=== PATIENT | female | born 1950 | race Caucasian/White ===

== ENCOUNTER → 2016-10-19 | Outpatient (CLI) | payer MEDICARE, BC ==
[~2016-10-19] MED LIST: ASPI-611 PO; ATEN1TAB30 PO; CALC-1124 PO; CALC750T4 PO; CHOL100018 PO; FAMO-137 PO; LACT1CAP80 PO; LEVO75TA10 PO; LUBI24CA7 PO; ONDA4TAB7 PO; PANT40TA27 PO; POTA10TA16 PO; PREN1TAB77 PO; SENN1TAB79 PO; SIMV20TA89 PO; TRAM50TA4 PO; VITA1CAP64 PO
== END ==
LOC: NWCC 15:23
PROVIDERS: ATTEND Surgery
DX: T81.31XA Disruption of external operation (surgical) wound, not elsewhere classified, initial encounter (principal); Y83.8 Other surgical procedures as the cause of abnormal reaction of the patient, or of later complication, without mention of misadventure at the time of the procedure
CPT/HCPCS: 97605; A6237

== ENCOUNTER → 2016-10-22 | Outpatient (CLI) | payer MEDICARE, BC ==
--- NOTE | 2016-10-22 21:50 | WOUNDPNF ---
DATE 10/22/2016 HISTORY This patient developed an open wound at a midline vertically oriented abdominal incision when the skin and subcutaneous tissue at this incision were opened for drainage of a subcutaneous fluid collection on 09/04/2016. The patient did have a wound VAC placed to this open wound at the abdominal incision. The patient did undergo secondary closure of this open wound at the abdomen on 10/13/[address] Lou at [facility]. Skin and subcutaneous tissue margins were closed at most of the incision. There were five areas along the incision where dorina of white foam were placed down through the incision down to the base of the open wound. A wound VAC was then applied over the incision at the time of the operation performed on 10/13/2016. The patient has been back to [facility] [place] for wound VAC dressing changes since the operation performed on 10/13/2016. The negative pressure for the wound VAC was initially set at 125 mmHg at the time of the operation performed on 10/13/2016. The negative pressure was increased to 150 mmHg at the time of the last wound VAC dressing change at [facility] on 10/19/2016. The patient comes in for another wound VAC dressing change today. PHYSICAL EXAM Vital signs: Temperature is 97.4 degrees Fahrenheit. Blood pressure is 138/75. Pulse is 43. Weight is 138 pounds. ABDOMEN: The patient has a vertically oriented wound at the midline of the abdomen. Grace are in place along this wound from the operation performed on 10/13/2016. The patient has five open areas along the incision where she has had dorina of white foam extending down into the wound. The wound is examined after these white foam dorina are removed. The wound is 18 cm long in a bcstylwd-tt-fupslvvd direction. The wound is 0.8 cm wide in a xpabi-vz-zpul direction. The wound is 2.5 cm deep. There is healthy red granulation tissue visible at the subcutaneous tissue level as this level of the wound is examined through the five open areas along the incision. There is no infection or purulence anywhere at the wound. There is no necrotic tissue seen anywhere at the wound. IMPRESSION 1. Status post exploratory laparotomy, lysis of extensive intraabdominal and pelvic adhesions and small bowel resection with primary anastomosis on 08/27/2016. 2. Status post drainage of subcutaneous fluid collection at the abdominal incision on 09/04/2016 with creation of an open wound at the midline abdominal incision at that time. 3. Status post secondary closure of open wound of abdomen with placement of wound VAC at the wound on 10/13/2016. TREATMENT The wound VAC was removed today at the wound at the midline of the abdomen by [facility] nurses. Wound assessment was performed by Dr. Lou. No debridement was needed anywhere at the wound today. Dr. Lou did remove most of the skin grace at the incision today. A few skin grace were left in place. Instructions for ongoing care were then provided by Dr. Lou. A new wound VAC dressing was applied to the wound by [facility] nurses. PLAN 1. Keep negative pressure for the wound VAC at 150 mmHg. 2. Return back to [facility] for another wound VAC dressing change on 10/26/2016. 3. Return back to [facility] for another wound VAC dressing change on 10/29/2016. The wound will be reassessed by Dr. Lou again at that time. SHARLENE
== END ==
LOC: NWCC 14:24
PROVIDERS: ATTEND Surgery
DX: T81.31XA Disruption of external operation (surgical) wound, not elsewhere classified, initial encounter (principal); Y83.8 Other surgical procedures as the cause of abnormal reaction of the patient, or of later complication, without mention of misadventure at the time of the procedure

== ENCOUNTER → 2016-10-26 | Outpatient (CLI) | payer MEDICARE, BC | LOC: NWCC 10:21 | PROVIDERS: ATTEND Surgery | DX: T81.31XA Disruption of external operation (surgical) wound, not elsewhere classified, initial encounter (principal); Y83.8 Other surgical procedures as the cause of abnormal reaction of the patient, or of later complication, without mention of misadventure at the time of the procedure | CPT/HCPCS: 97605; A6237 ==

== ENCOUNTER → 2016-10-29 | Outpatient (CLI) | payer MEDICARE, BC ==
--- NOTE | 2016-10-30 08:02 | WOUNDPNF ---
DATE 10/29/2016 HISTORY This patient developed an open wound at a midline vertically oriented abdominal incision when the skin and subcutaneous tissue at this incision was opened for drainage of a subcutaneous fluid collection on 09/04/2016. The patient did have a wound VAC placed to this open wound at the abdominal incision. The patient did undergo secondary closure of this open wound at the abdomen on 10/13/[address] Lou at [facility]. Skin and subcutaneous tissue margins were closed at most of the incision. There were five areas along the incision where dorina of white foam were placed down through the incision down to the base of the open wound. A wound VAC was then applied over the incision at the time of the operation performed on 10/13/2016. The patient has been coming back to [facility] for wound VAC dressing changes since the operation performed on 10/13/2016. She comes in for a wound VAC dressing change today.. PHYSICAL EXAMINATION VITAL SIGNS: Blood pressure is 119/75. Pulse is 71. Respiratory rate is 20. Temperature is 98.4 degrees. ABDOMEN: The patient has a vertically oriented wound at the midline of the abdomen. The patient has five open areas along the incision where she has had dorina of white foam extending down into the wound. The wound is examined after these white foam dorina are removed. The wound is 15 cm long in a mwuuhkxh-ns-txijifci direction. The wound is 0.8 cm wide in a qtmpu-ts-ydot direction. The wound is 2.5 cm deep at the deepest point which is at the most superior opening along the incision at the superior end of the incision. There is healthy red granulation tissue visible at the subcutaneous tissue level throughout the wound as the wound is examined through the five small open areas along the incision. There is no infection or purulence anywhere at the wound. There is no necrotic tissue at the wound. IMPRESSION 1. Status post exploratory laparotomy, lysis of extensive intraabdominal and pelvic adhesions and small bowel resection with primary anastomosis on 08/27/2016. 2. Status post drainage of subcutaneous fluid collection at the abdominal incision on 09/04/2016 with creation of an open wound at the midline abdominal incision at this time. 3. Status post secondary closure of open wound at abdomen with placement of a wound VAC to the wound on 10/13/2016. TREATMENT The wound VAC was removed today at the wound at the midline of the abdomen by [facility] nurses. Wound assessment was performed by Dr. Lou. No debridement was needed anywhere at the wound today. Instructions for ongoing care were provided by Dr. Lou. A new wound VAC dressing was then applied to the wound by [facility] nurses. PLAN 1. Keep negative pressure for the wound VAC at 150 mmHg.. 2. Return back to [facility] [place] for another wound VAC dressing change again on 11/02/2016. 3. Return back to [facility] for another wound VAC dressing change on 11/05/2016. The wound will be reassessed by Dr. Lou again at that time. [facility]ITAL[facility]
== END ==
LOC: NWCC 14:19
PROVIDERS: ATTEND Surgery
DX: T81.31XA Disruption of external operation (surgical) wound, not elsewhere classified, initial encounter (principal); Y83.8 Other surgical procedures as the cause of abnormal reaction of the patient, or of later complication, without mention of misadventure at the time of the procedure
CPT/HCPCS: 97605

== ENCOUNTER → 2016-11-02 | Outpatient (CLI) | payer MEDICARE, BC | LOC: NWCC 11:21 | PROVIDERS: ATTEND Surgery | DX: T81.31XA Disruption of external operation (surgical) wound, not elsewhere classified, initial encounter (principal); Y83.8 Other surgical procedures as the cause of abnormal reaction of the patient, or of later complication, without mention of misadventure at the time of the procedure | CPT/HCPCS: 97605; A6237 ==

== ENCOUNTER → 2016-11-05 | Outpatient (CLI) | payer MEDICARE, BC ==
--- NOTE | 2016-11-05 19:54 | WOUNDPNF ---
DATE 11/05/2016 HISTORY This patient developed an open wound at a midline vertically oriented abdominal incision when the skin and subcutaneous tissue at this incision were opened for drainage of a subcutaneous fluid collection on 09/04/2016. The patient did have a wound VAC placed to this open wound at the abdominal incision. The patient did undergo secondary closure of this open wound at the abdomen on 10/13/[address] Lou at [facility]. Skin and subcutaneous tissue margins were closed at most of the incision. There were five areas along the incision where dorina of white foam were placed down through the incision down to the base of the open wound. A wound VAC was then applied over the incision at the time of the operation performed on 10/13/2016. The patient has been coming back to [facility] for wound VAC dressing changes since the operation performed on 10/13/2016. She comes in for a wound VAC dressing change today. PHYSICAL EXAMINATION Vital signs: Blood pressure is 119/79. Pulse is 69. Respiratory rate is 20. Weight is 140 pounds. ABDOMEN: The patient has a vertically oriented wound at the midline of the abdomen. The patient has five open areas along the wound which were left open at the time of the operation performed on 10/13/2016. The wound is 15 cm long in a dkuitqbw-ug-cnaallrc direction. The wound is 0.8 cm wide in a gfhxj-gf-dtmt direction. The wound is 2.5 cm deep at the deepest point which is at the most superior opening along the incision at the superior end of the incision. There is healthy red granulation tissue visible at the subcutaneous tissue level throughout the wound as the wound is examined through the five small open areas along the incision. There is no infection or purulence anywhere at the wound today. There is no necrotic tissue at the wound. IMPRESSION 1. Status post exploratory laparotomy, lysis of extensive intraabdominal and pelvic adhesions and small bowel resection with primary anastomosis on 08/27/2016. 2. Status post drainage of subcutaneous fluid collection at abdominal incision on 09/04/2016 with creation of an open wound at the midline abdominal incision at this time. 3. Status post secondary closure of open wound at abdomen with placement of a wound VAC to the wound on 10/13/2016. TREATMENT The wound VAC was removed today at the wound at the midline of the abdomen by [facility] nurses. Wound assessment was performed by Dr. Lou. No debridement was needed anywhere at the wound today. Instructions for ongoing care were provided by Dr. Lou. A new wound VAC dressing was then applied to the wound by [facility] nurses. PLAN 1. Continue negative pressure therapy with wound VAC at 150 mmHg. 2. Return back to [facility] for another wound VAC dressing change again on 11/09/2016. 3. Return back to [facility] for another wound VAC dressing change on 11/12/2016. The wound will be reassessed by Dr. Lou again at that time. SHARLENE
== END ==
LOC: NWCC 14:26
PROVIDERS: ATTEND Surgery
DX: T81.31XA Disruption of external operation (surgical) wound, not elsewhere classified, initial encounter (principal); Y83.8 Other surgical procedures as the cause of abnormal reaction of the patient, or of later complication, without mention of misadventure at the time of the procedure
CPT/HCPCS: 97605; A6237

== ENCOUNTER → 2016-11-09 | Outpatient (CLI) | payer MEDICARE, BC | LOC: NWCC 14:24 | PROVIDERS: ATTEND Surgery | DX: T81.31XA Disruption of external operation (surgical) wound, not elsewhere classified, initial encounter (principal); Y83.8 Other surgical procedures as the cause of abnormal reaction of the patient, or of later complication, without mention of misadventure at the time of the procedure | CPT/HCPCS: 97605; A6237 ==

== ENCOUNTER → 2016-11-12 | Outpatient (CLI) | payer MEDICARE, BC ==
--- NOTE | 2016-11-13 12:33 | WOUNDPNF ---
DATE 11/12/2016 HISTORY This patient developed an open wound at a midline vertically oriented abdominal incision when the skin and subcutaneous tissue at this incision were opened for drainage of a subcutaneous fluid collection on 09/04/2016. The patient did have a wound V.A.C. placed to this open wound at the abdominal incision. The patient did undergo secondary closure of this open wound at the abdomen on 10/13/[address] Lou at [facility]. Skin and subcutaneous tissue margins were closed at most of the incision. There were some small areas along the incision where dorina of white foam were placed down through the incision down to the base of the open wound. The wound V.A.C. was then applied over the incision at the time of the operation performed on 11/10/2016. The patient has been coming back to [facility] for wound V.A.C. dressing changes since the operation performed on 10/13/2016. The small open areas along the incision where the dorina of white foam were placed have been slowly healing closed. She comes in for a wound V.A.C. dressing change today. PHYSICAL EXAMINATION ABDOMEN: The patient has a vertically oriented wound at the midline of the abdomen. The patient has six small open areas along the wound. Each of these small open areas is lined with healthy red granulation tissue. The wound is 15 cm long from the superior end of the superior open area to the inferior end of the inferior open area. The largest of these open areas is about 0.7 cm wide in a rdwze-uo-wkzn direction. The deepest of these open areas is the most superior one which is 2.5 cm deep at the superior end of the wound. The other open areas are much less deep. There is no necrotic tissue or inflammatory tissue or infection at the wound anywhere. IMPRESSION 1. Status post exploratory laparotomy, lysis of extensive intraabdominal and pelvic adhesions and small bowel resection with primary anastomosis on 08/27/2016. 2. Status post drainage of subcutaneous fluid collection at abdominal incision on 09/04/2016 with creation of an open wound at the midline abdominal incision at this time. 3. Status post secondary closure of open wound at abdomen with placement of a wound V.A.C. to the wound on 10/13/2016. TREATMENT The wound V.A.C. was removed today at the wound at the midline of the abdomen by [facility] nurses. Wound assessment was performed by Dr. Lou. No debridement was needed anywhere at the wound today. Instructions for ongoing care were provided by Dr. Lou. A new wound V.A.C. dressing was then applied to the wound by [facility] nurses. PLAN 1. Continue negative pressure therapy with wound V.A.C. at 150 mmHg. 2. Return back to [facility] for another wound V.A.C. dressing change again on 11/16/2016. 3. Return back to [facility] for another wound V.A.C. dressing change again on 11/19/2016. The wound will be reassessed by Dr. Lou again at that time. [facility]
== END ==
LOC: NWCC 14:20
PROVIDERS: ATTEND Surgery
DX: T81.31XA Disruption of external operation (surgical) wound, not elsewhere classified, initial encounter (principal); Y83.8 Other surgical procedures as the cause of abnormal reaction of the patient, or of later complication, without mention of misadventure at the time of the procedure
CPT/HCPCS: 97605; A6237

== ENCOUNTER → 2016-11-16 | Outpatient (CLI) | payer MEDICARE, BC | LOC: NWCC 09:54 | PROVIDERS: ATTEND Surgery | DX: T81.31XA Disruption of external operation (surgical) wound, not elsewhere classified, initial encounter (principal); Y83.8 Other surgical procedures as the cause of abnormal reaction of the patient, or of later complication, without mention of misadventure at the time of the procedure | CPT/HCPCS: 97605; A6021 ==

== ENCOUNTER → 2016-11-17 | Outpatient (CLI) | payer MEDICARE, BC | LOC: LABN 13:39 | PROVIDERS: ATTEND Internal Medicine Medical Oncology | DX: Z85.43 Personal history of malignant neoplasm of ovary (principal) | CPT/HCPCS: 86304 ==

== ENCOUNTER → 2016-11-19 | Outpatient (CLI) | payer MEDICARE, BC ==
[~2016-11-19] MED LIST changes: +SALINE FLUSH 10ml SYRINGE IVF ONE
--- NOTE | 2016-11-19 19:38 | WOUNDPNF ---
DATE 11/19/2016 HISTORY This patient developed an open wound at a midline vertically oriented abdominal incision when the skin and subcutaneous tissue at this incision were opened for drainage of a subcutaneous fluid collection on 09/04/2016. The patient did have a wound V.A.C. applied to this open wound at the abdominal incision. The patient did undergo secondary closure of this open wound at the abdomen on 10/13/[address] Lou at [facility]. Skin and subcutaneous tissue margins were closed at most of the incision. There were some small areas along the incision where dorina of white foam were placed down through the incision down to the base of the open wound. The wound V.A.C. was then applied over the incision at the time of the operation performed on 10/13/2016. The patient has been coming back to [facility] for wound V.A.C. dressing changes since the operation performed on 10/13/2016. The small open areas along the incision where the dorina of white foam were placed have been slowly healing closed. She comes in for a wound V.A.C. dressing change today. PHYSICAL EXAMINATION VITAL SIGNS: Blood pressure is 119/72. Pulse is 84. Respiratory rate is 18. Temperature is 97.9 degrees Fahrenheit. ABDOMEN: The patient has a vertically oriented wound at the midline of the abdomen. The patient has six small open areas along the wound. Each of these small open areas is lined with healthy red granulation tissue at the superficial part of the open areas. The wound is 14.9 cm long from the superior end of the superior open area to the inferior end of the inferior open area. The largest of these open areas is about 0.7 cm wide in a oyrei-pl-xcem direction. The deepest of these open areas appeared to be 2.4-cm deep at initial examination today. The inferior four small open areas are very shallow and are nearly healed closed. The two most superior open areas along the incision are deeper. When I did insert a sterile cotton-tipped applicator into the second open area down from the superior end of the wound, there was 3.5 cm of tunneling superiorly at 12 o'clock position from this second opening. This tunneling was deep down in the wound at a level 2 to 3 cm deep to the skin surface. This tunneling extended for a distance 3.5 cm superior to the second opening down from the superior end of the wound. This tunneling extended superiorly all the way up beneath the most superiorly located open area. This was tunneling deep down in the wound at the base of the wound. IMPRESSION 1. Status post exploratory laparotomy, lysis of extensive intraabdominal and pelvic adhesions, and small bowel resection with primary anastomosis on 08/27/2016. 2. Status post drainage of subcutaneous fluid collection at abdominal incision on 09/04/2016 with creation of an open wound at the midline abdominal incision at this time. 3. Status post secondary closure of open wound at abdomen with placement of a wound V.A.C. to the wound on 10/13/2016. 4. Tunneling deep at the subcutaneous tissue level at the superior end of the wound with the tunneling filled with chronic granulation tissue at the base of the wound at this level. TREATMENT The wound V.A.C. was removed today at the wound at the midline of the abdomen by [facility] nurses. Wound assessment was performed by Dr. Lou. There was concern about this persistent tunneling deep down in the subcutaneous tissue level at the superior end of the wound. The superior end of the wound was opened up from the skin all the way down to the base of the wound overlying this tunnel to unroof the tunnel and then the chronic granulation tissue was debrided out of the tunnel and out of the base of the wound at the superior end of the wound by Dr. Lou today. The superior end of the abdominal incision was first prepped with Betadine. Local anesthesia was infiltrated throughout the skin and subcutaneous tissue overlying the tunnel between the two most superior open areas at the superior end of the wound. Scalpel was then used to make a 4-cm long incision through the old vertically oriented incision scar at the superior end of the wound overlying this tunnel. This incision was extended all the way down through the intact underlying subcutaneous tissue all the way down to the tunnel at the base of the wound. This did open up the wound and unroof and expose this tunnel at the level of the base of the subcutaneous space which was filled with chronic granulation tissue. After this was done, all the chronic granulation tissue at the base of the wound within the tunnel at the base of the wound and deep in the subcutaneous tissue space was debrided out of the wound. A dermal curette was used to debride a lot of this chronic granulation tissue out of the wound. A gauze was used to debride some of the granulation tissue out of this area. Thumb forceps and scissors were used to excise some of the chronic granulation tissue. With all of these various methods, the granulation tissue was removed. Most of this granulation tissue was removed with sharp excisional debridement with the dermal curette or with scissors. This was done until all the chronic granulation tissue at the base of the subcutaneous space at the base of this open wound had been removed. This did create bleeding. The bleeding was controlled by chemical cauterization with silver nitrate sticks. All of the bleeding was stopped in this manner. Satisfactory hemostasis was achieved. After all of this was done, there was a larger open wound at the superior end of the midline vertically oriented abdominal incision. This open area was 4 cm long in a abivkksp-dj-lvpdhltr direction. It was 2 cm wide in a cwjzk-dr-hucf direction. This open area at the superior end of the incision was now 3.5 cm deep. Instructions for ongoing care were provided by Dr. Lou. A new wound V.A.C. dressing was then applied to the wound by [facility] nurses. PLAN 1. Continue negative-pressure therapy with wound V.A.C. at 150 mmHg. 2. Return back to [facility] for another wound V.A.C. dressing change on 11/23/2016. 3. Return back to [facility] for another wound V.A.C. dressing change on 11/26/2016. The wound will be reassessed by Dr. Lou again at that time. SHARLENE
== END ==
LOC: NWCC 14:11
PROVIDERS: ATTEND Surgery
DX: T81.31XA Disruption of external operation (surgical) wound, not elsewhere classified, initial encounter (principal); Y83.8 Other surgical procedures as the cause of abnormal reaction of the patient, or of later complication, without mention of misadventure at the time of the procedure
CPT/HCPCS: 11042; 11045; 97605

== ENCOUNTER → 2016-11-23 | Outpatient (CLI) | payer MEDICARE, BC ==
[~2016-11-23] MED LIST changes: -SALINE FLUSH 10ml SYRINGE IVF ONE
== END ==
LOC: NWCC 10:51
PROVIDERS: ATTEND Surgery
DX: T81.31XA Disruption of external operation (surgical) wound, not elsewhere classified, initial encounter (principal); Y83.8 Other surgical procedures as the cause of abnormal reaction of the patient, or of later complication, without mention of misadventure at the time of the procedure; B96.89 Other specified bacterial agents as the cause of diseases classified elsewhere
CPT/HCPCS: 87070; 87075; 87077; 87186; 87205; 97605; A6210; A6237; G0463

== ENCOUNTER → 2016-11-26 | Outpatient (CLI) | payer MEDICARE, BC ==
[~2016-11-26] MED LIST changes: +LIDOCAINE 1% (10mg/ml) 30ml SDV IJ ONE; +SALINE FLUSH 10ml SYRINGE IVF ONE; +SILVER NITRATE APPLICATOR TOP ONE
--- NOTE | 2016-11-27 10:18 | WOUNDPNF ---
DATE 11/26/2016 HISTORY This patient developed an open wound at a midline vertically oriented abdominal incision when the skin and subcutaneous tissue at this incision were opened for drainage of a subcutaneous fluid collection on 09/04/2016. The patient did have a wound V.A.C. applied to this open wound at the abdominal incision. The patient did undergo secondary closure of this open wound at the abdomen on 10/13/[address] Lou at [facility]. Skin and subcutaneous tissue margins were closed at most of the incision at this time. There were some small areas along the incision where dorina of white foam were placed down through the incision down to the base of the open wound. A wound V.A.C. was then applied over the incision at the time of the operation performed on 10/13/2016. The patient has been coming back to [facility] for wound V.A.C. dressing changes since the operation performed on 10/13/2016. All of the small openings along the incision where dorina were placed at the middle of the wound and inferior end of the wound have healed closed or nearly completely healed closed since 10/13/2016. The patient did have the skin and subcutaneous tissue between the open area at the superior end of the wound and the second open area down from the superior end of the wound divided on 11/19/2016 at [facility]. This did divide a bridge of skin and subcutaneous tissue which was overlying a tunnel filled with chronic granulation tissue at the base the wound. All the chronic granulation tissue was debrided out of the base of the wound at that time on 11/19/2016. PHYSICAL EXAMINATION ABDOMEN: The patient has a vertically oriented wound at the midline of the abdomen. There is an open area at the superior end of the wound where the wound was opened up on 2016. This area was 3.5 cm long in a hnsuqkxi-wm-[id number] direction. This wound was 1.8 cm wide in a right -to-left direction. The wound was 3.5 cm deep. The superficial part of this wound has margins which were lined with healthy red granulation tissue. There were a couple of areas where there was a little bit of white necrotic tissue at the superficial part of the wound. The deepest part of the wound did seem to tunnel a little bit beneath the skin and subcutaneous tissue at the superior end of this wound. There does continue to appear to be some white fibrinous type of nonhealing tissue at the very deepest part of the wound. There does no longer appear to be any of the arrieta chronic granulation tissue at the deep part of the wound. There is absolutely no evidence any purulent material or active infection anywhere at the deepest part of the wound or anywhere else at the wound. It does look as if perhaps the wound is not opened up enough for the black foam to go all the way down to the base of the wound to help this area heal closed by negative pressure therapy. IMPRESSION 1. Status post exploratory laparotomy, lysis of extensive intraabdominal and pelvic adhesions and small bowel resection with primary anastomosis on 08/27/2016. 2. Status post drainage of subcutaneous fluid collection at abdominal incision on 09/04/2016 with creation of an open wound at the midline abdominal incision at this time. 3. Status post secondary closure of the open wound at the abdomen with placement of a wound V.A.C. to the wound on 10/13/2016. TREATMENT The wound V.A.C. was removed today at the wound at the midline of the abdomen by [facility] nurses. Wound assessment was performed by Dr. Lou. Some small pieces of white necrotic tissue at the superficial part of the wound were sharply excised with iris scissors today to debride this superficial part of the wound. The open wound at the superior end of the incision was then opened up further to unroof any tunneling at the superior part of this open area and open up the superficial part of the wound more so that black foam could reach all the way down to the base of the wound when the wound V.A.C. is applied to make sure that the negative pressure gets all the way down to the deepest part of the wound which does not contain any red healthy granulation tissue today. The wound was prepped with Betadine. Xylocaine 1% without epinephrine was infiltrated into skin and subcutaneous tissue at the superficial part of the wound. The open wound was extended superiorly with scalpel at the skin and subcutaneous tissue level to open up the wound further superiorly and unroof the tunneling at the superior end of the wound. This did enlarge the superficial part of the wound to create better exposure at the deepest part of the wound which is not healing. Silver nitrate sticks were used to achieve hemostasis at the wound which was opened up further superiorly. A dermal curette was then used to debride chronic nonhealing tissue at the base of the wound and all around all sides of the wound at the deep level of the wound. This tissue was debrided back to healthy bleeding tissue. Hemostasis was then achieved at this area with silver nitrate sticks. Additional 1% Xylocaine was infiltrated into tissue all throughout the wound at this time to maintain patient comfort. Debridement was performed at the subcutaneous tissue level at about 75% of the open surface of the wound today by Dr. Lou. Some of this was sharp excisional debridement with iris scissors. Some of this was debridement with a dermal curette. Hemostasis was achieved throughout all these areas with silver nitrate sticks. After all this was done, the open wound at the superior end of the incision was remeasured. This wound was now 5.3 cm long in a saoifqup-da-luocphft direction. The wound was now 3 cm wide. The wound continued to be 3.5 cm deep. Instructions for ongoing care were provided by Dr. Lou. A new wound V.A.C. dressing was then applied to the wound by [facility] nurses. It is hoped that opening up the superficial part of the wound more today will allow foam to be placed deeper down into the wound and promote healing at the very deepest part of the wound which has been slow to heal up to this point. PLAN 1. Continue negative pressure therapy with wound V.A.C. at 150 mmHg. 2. Return back to [facility] for another wound V.A.C. dressing change on 11/30/2016. 3. Return back to [facility] for another wound V.A.C. dressing change on 12/03/2016. The wound will be reassessed by Dr. Lou again at that time. [facility]
== END ==
LOC: NWCC 13:48
PROVIDERS: ATTEND Surgery
DX: T81.31XA Disruption of external operation (surgical) wound, not elsewhere classified, initial encounter (principal); Y83.8 Other surgical procedures as the cause of abnormal reaction of the patient, or of later complication, without mention of misadventure at the time of the procedure
CPT/HCPCS: 11042; 97605; A6237

== ENCOUNTER → 2016-11-30 | Outpatient (CLI) | payer MEDICARE, BC ==
[~2016-11-30] MED LIST changes: -LIDOCAINE 1% (10mg/ml) 30ml SDV IJ ONE; -SALINE FLUSH 10ml SYRINGE IVF ONE; -SILVER NITRATE APPLICATOR TOP ONE
== END ==
LOC: NWCC 09:55
PROVIDERS: ATTEND Surgery
DX: T81.31XA Disruption of external operation (surgical) wound, not elsewhere classified, initial encounter (principal); Y83.8 Other surgical procedures as the cause of abnormal reaction of the patient, or of later complication, without mention of misadventure at the time of the procedure
CPT/HCPCS: 97605

== ENCOUNTER → 2016-12-03 | Outpatient (CLI) | payer MEDICARE, BC ==
--- NOTE | 2016-12-04 13:36 | WOUNDPNF ---
DATE 12/03/2016 HISTORY This patient developed an open wound at a midline vertically oriented abdominal incision when the skin and subcutaneous tissue at this incision were opened for drainage of a subcutaneous fluid collection on 09/04/2016. The patient did have a wound VAC applied to this open wound at the abdominal incision. The patient did undergo secondary closure of this open wound at the abdomen on 10/[address] Lou at [facility]. The skin and subcutaneous tissue margins were closed at most of the incision at this time. There were some small areas along the incision were dorina of white foam were placed down through the incision down to the base the open wound. A wound VAC was then applied over the incision at the time of the operation performed on 10/13/2016. The patient has been coming back to [facility] for wound VAC dressing changes since the operation performed on 10/13/2016. All of the small openings along the incision at the middle of the incision and inferior end of the incision have healed closed or nearly completely healed closed since 2016. The patient did have some nonhealing chronic granulation tissue down at the base the wound at the superior end of the wound. The patient did have skin and subcutaneous tissue between the open area at the superior end of the wound and a second open area down from the superior end of the wound divided on 2016 at [facility] by Dr. Lou. This did divide a bridge of skin and subcutaneous tissue which was overlying a tunnel filled with chronic granulation tissue at the base the wound. All of this chronic granulation tissue was debrided out of the base of the wound at that time on 11/19/2016. The patient did have the open wound at the superior end of the wound opened up even further on 11/26/[address] Lou at [facility]. This was done to allow the black foam to be placed all way down to the base the wound to help this area heal closed by negative pressure therapy. PHYSICAL EXAMINATION ABDOMEN: The patient has a vertically oriented incision at the midline of the abdomen. There is an open area at the superior end of this wound. This is 4.8 cm long in a superior-to- inferior direction. The wound is 3 cm wide in a jhdsk-[id number]-[id number] direction. The wound is 3.5 cm deep. The open surface of this wound is composed of healthy red beefy granulation tissue. There are a few small areas where there is a little bit of white necrotic tissue at wound margins. The deepest part of the wound consists only of healthy red granulation tissue. There is no longer any arrieta chronic granulation tissue anywhere at the wound. There is no necrotic tissue at the deepest part of the wound. There is no purulence or active infection at the wound anywhere. The small remaining open areas at the middle of the midline vertically oriented abdominal incision and the inferior end of this incision have all completely healed closed at this time. IMPRESSION 1. Status post exploratory laparotomy, lysis of extensive intraabdominal and pelvic adhesions and small bowel resection with primary anastomosis on 08/27/2016. 2. Status post drainage of subcutaneous fluid collection at abdominal incision on 09/04/2016 with creation of an open wound at the midline abdominal incision at this time. 3. Status post secondary closure of the open wound at the abdomen with placement of wound VAC to the wound on 10/13/2016. TREATMENT The wound VAC was removed today at the wound at the midline of the abdomen by [facility] nurses. Wound assessment was performed by Dr. Lou. Dr. Lou did use a dermal curette to remove the small areas of white necrotic tissue at the open margins of the wound. This was sharp excisional debridement with a dermal curette at about 10% of the surface of the open wound today at the subcutaneous tissue level. This sharp excisional debridement did produce some bleeding which was able to be controlled with application of direct pressure today. Satisfactory hemostasis was achieved. Instructions for ongoing care were provided by Dr. Lou. The [facility] nurses did then apply a new wound VAC dressing to the open wound. Negative pressure for the wound VAC was kept at 150 mmHg. PLAN 1. Continue negative pressure therapy with wound VAC at 150 mmHg. 2. Return back to [facility] for another wound VAC dressing change on 12/07/2016. 3. Return back to [facility] for another wound VAC dressing change on 12/10/2016. The wound will be reassessed by Dr. Lou again at that time. [facility]
== END ==
LOC: NWCC 14:01
PROVIDERS: ATTEND Surgery
DX: T81.31XA Disruption of external operation (surgical) wound, not elsewhere classified, initial encounter (principal); Y83.8 Other surgical procedures as the cause of abnormal reaction of the patient, or of later complication, without mention of misadventure at the time of the procedure
CPT/HCPCS: 11042; A6021

== ENCOUNTER → 2016-12-07 | Outpatient (CLI) | payer MEDICARE, BC | LOC: NWCC 10:22 | PROVIDERS: ATTEND Surgery | DX: T81.31XA Disruption of external operation (surgical) wound, not elsewhere classified, initial encounter (principal); Y83.8 Other surgical procedures as the cause of abnormal reaction of the patient, or of later complication, without mention of misadventure at the time of the procedure | CPT/HCPCS: 97605; A6212 ==

== ENCOUNTER → 2016-12-10 | Outpatient (CLI) | payer MEDICARE, BC ==
--- NOTE | 2016-12-11 09:58 | WOUNDPNF ---
DATE 12/10/2016 HISTORY See 12/03/2016 [facility] progress note for background. The patient does have an open wound remaining at the superior end of a midline vertically oriented abdominal incision. This open wound is being treated with negative pressure therapy with a wound VAC at this time. PHYSICAL EXAMINATION ABDOMEN: The patient has a vertically oriented incision at the midline of the abdomen. There is an open area at the superior end of this incision. The open wound which remains is 4.8 cm long in a drkuxvpw-tu-dtrcjvrs direction. The wound is 3.8 cm wide in a cgusr-tf-cwro direction. The wound is 2.5 cm deep. The open surface of this wound is composed of healthy red beefy granulation tissue. The base of the wound consists of healthy red granulation tissue. There is no sign of any purulence or infection at the wound. There is no necrotic tissue at the wound. IMPRESSION 1. Status post exploratory laparotomy, lysis of extensive intraabdominal and pelvic adhesions and small bowel resection with primary anastomosis on 08/27/2016. 2. Status post drainage of subcutaneous fluid collection at abdominal incision on 09/04/2016 with creation of an open wound at the midline abdominal incision at this time. 3. Status post secondary closure of the open wound at the abdomen with placement of a wound VAC to the wound on 10/13/2016. 4. Remaining open wound at superior end of midline vertically oriented abdominal incision. TREATMENT The wound VAC was removed today at the open area at the superior end of the midline vertically oriented abdominal incision by [facility] nurses. Wound assessment was performed by Dr. Lou. No debridement of the wound was performed today. Instructions for ongoing care were provided by Dr. Lou. The [facility] nurses did then apply a new wound VAC dressing to the open wound. Negative pressure for the wound VAC is kept at 150 mmHg. PLAN 1. Continue negative pressure therapy with wound VAC at 150 mmHg. 2. Return back to [facility] for another wound VAC dressing change on 12/14/2016. 3. Return back to [facility] for another wound VAC dressing change on 12/17/2016. The wound will be reassessed by Dr. Lou again at that time. [facility]
== END ==
LOC: NWCC 13:52
PROVIDERS: ATTEND Surgery
DX: T81.31XA Disruption of external operation (surgical) wound, not elsewhere classified, initial encounter (principal); Y83.8 Other surgical procedures as the cause of abnormal reaction of the patient, or of later complication, without mention of misadventure at the time of the procedure
CPT/HCPCS: 97605; A6237

== ENCOUNTER → 2016-12-14 | Outpatient (CLI) | payer MEDICARE, BC ==
[~2016-12-14] MED LIST changes: +SALINE FLUSH 10ml SYRINGE IVF ONE
== END ==
LOC: NWCC 10:54
PROVIDERS: ATTEND Surgery
DX: T81.31XA Disruption of external operation (surgical) wound, not elsewhere classified, initial encounter (principal); Y83.8 Other surgical procedures as the cause of abnormal reaction of the patient, or of later complication, without mention of misadventure at the time of the procedure
CPT/HCPCS: 97605; A6212; A6237

== ENCOUNTER → 2016-12-17 | Outpatient (CLI) | payer MEDICARE, BC ==
[~2016-12-17] MED LIST changes: -SALINE FLUSH 10ml SYRINGE IVF ONE
--- NOTE | 2016-12-18 14:43 | WOUNDPN ---
DATE 12/17/2016 HISTORY See 12/03/2016 [facility] progress note for background. The patient does have an open wound remaining at the superior end of a midline vertically-oriented abdominal incision. This open wound is being treated with negative pressure therapy with a wound VAC at this time. PHYSICAL EXAMINATION ABDOMEN: The patient has a vertically-oriented incision at the midline of the abdomen. There is an open area at the superior end of this incision. The open wound which remains is 5 cm long in a zydshzwn-zo-ynhcheve direction. The wound is 3.5 cm wide in a cnmbk-ga-sbri direction. The majority of the open surface of this wound is composed of healthy beefy red granulation tissue. There was a little bit of white devitalized tissue at the base of the wound at the center of the wound today. There was also some necrotic tissue at the superior end of the wound at a more superficial level at the subcutaneous space. There was no sign of any purulence or infection at the wound. IMPRESSION 1. Status post laparotomy, lysis of extensive intraabdominal and pelvic adhesions and small bowel resection with primary anastomosis on 08/27/2016. 2. Status post drainage of subcutaneous fluid collection at abdominal incision on 09/04/2016 with creation of an open wound at the midline abdominal incision at this time. 3. Status post secondary closure of the open wound at the abdomen with placement of a wound VAC to the wound on 10/13/2016. 4. Remaining open wound at superior end of midline vertically-oriented abdominal incision. TREATMENT The wound VAC dressings were removed today at the open area at the superior end of the midline vertically oriented abdominal incision by [facility] nurses. Some EMLA cream was then applied to the wound for topical anesthesia. The EMLA cream was then later removed. Wound assessment was performed by Dr. Lou. Some sharp excisional debridement was performed at the wound today. The necrotic tissue at the subcutaneous tissue level at the superior end of the wound was sharply excised with iris scissors. The bleeding that resulted from this sharp excisional debridement was controlled with application of direct pressure. Some white devitalized tissue at the base the wound at the center of the wound was then also removed by debridement. Bleeding at this area was controlled with direct pressure. The wound was then remeasured after this debridement. The wound was 5 cm long in a jdppbvoz-gb-psxvnbyw direction. The wound was 3.5 cm wide in a gucvo-ey-kztc direction. The depth of the wound at the deepest part of the wound at the center of the wound where debridement was performed today was 3 cm after this debridement. It is estimated that the sharp excisional debridement was performed at about 10% of the open surface of the wound today. Instructions for ongoing care were then provided by Dr. Lou. The [facility] nurses did then apply a new wound VAC dressing to the open wound. Negative pressure for the wound VAC is kept at 150 mmHg. PLAN 1. Continue negative pressure therapy with wound VAC at 150 mmHg. 2. Return back to [facility] for another wound VAC dressing change on 12/21/2016. 3. Return back to [facility] for another wound VAC dressing change on 12/24/2016. The wound will be reassessed by Dr. Lou again at that time.
== END ==
LOC: NWCC 14:00
PROVIDERS: ATTEND Surgery
DX: T81.31XA Disruption of external operation (surgical) wound, not elsewhere classified, initial encounter (principal); Y83.8 Other surgical procedures as the cause of abnormal reaction of the patient, or of later complication, without mention of misadventure at the time of the procedure
CPT/HCPCS: 11042; 97605; A6237

== ENCOUNTER → 2016-12-21 | Outpatient (CLI) | payer MEDICARE, BC | LOC: NWCC 10:51 | PROVIDERS: ATTEND Internal Medicine | DX: T81.31XA Disruption of external operation (surgical) wound, not elsewhere classified, initial encounter (principal); Y83.8 Other surgical procedures as the cause of abnormal reaction of the patient, or of later complication, without mention of misadventure at the time of the procedure | CPT/HCPCS: 97605; A6237 ==